=== PATIENT | female | born 1945 | race Caucasian/White ===

== ENCOUNTER → 2023-11-20 10:46 | Outpatient (REF) | payer MEDICARE, SELFPAY | LOC: WDC 10:46 | PROVIDERS: ATTENDING PHYSICIAN Obstetrics & Gynecology Gynecology; FAMILY PHYSICIAN Family Medicine | DX: Z12.31 Encounter for screening mammogram for malignant neoplasm of breast (principal) | CPT/HCPCS: 77063; 77067 ==

== ENCOUNTER → 2023-12-18 08:34 | Outpatient (REF) | payer MEDICARE, SELFPAY ==
[2023-12-18 09:00] LABS: Urine Albumin Negative (Neg - Trace); Urine Bilirubin Negative (Negative); Urine Character Clear (Clear); Urine Color Yellow; Urine Glucose Negative (Negative); Urine Ketone Negative (Negative); Urine Leukocyte Trace (Negative); Urine Nitrite Negative (Negative); Urine Occult Blood Negative (Negative); Urine Specific Gravity 1.025 (<1.030); Urine Urobilinogen Negative (Neg - 1+)
[2023-12-18 09:03] LABS: % Basophils 1.1 % (0-2); % Eosinophils 2.4 % (0-6); % Immature Granulocytes 0.2 % (0-0.5); % Monocytes 9.6 % (1.7-9.3); % Neutrophils 49.7 % (42.2-75.2); Absolute Basophils 0.1 10^3/uL (0-0.2); Absolute Eosinophils 0.1 10^3/uL (0-0.7); Absolute Lymphocytes 1.7 10^3/uL (1.2-3.4); Absolute Monocytes 0.4 10^3/uL (0.1-0.6); Absolute Neutrophils 2.3 10^3/uL (1.4-6.5); Hematocrit 46.7 % (37.0-47.0); Hemoglobin 15.5 g/dL (12.0-16.0); Mean Corp Hgb Conc. 33.2 g/dL (33.0-37.0); Mean Corpuscular Hgb 31.6 pg (27.0-31.0); Mean Corpuscular Volume 95.3 fL (81.0-99.0); Mean Platelet Volume 9.9 fL (7.4-10.4); Nucleated Red Blood Cells % 0 %; Platelet Count 227 10^3/uL (130-400); Red Cell Dist. Width 13.4 % (11.5-14.5); White Blood Cell Count 4.6 10^3/uL (4.8-10.8)
[2023-12-18 09:20] LABS: Urine Red Blood Cell 0-2 /HPF (0-2)
[2023-12-18 09:46] LABS: ALT (SGPT) 29 U/L (0-35); AST (SGOT) 32 U/L (14-36); Albumin 4.6 g/dl (3.5-5.0); Alkaline Phosphatase 69 U/L (38-126); Blood Urea Nitrogen 16 mg/dl (7-17); Calcium 9.6 mg/dl (8.4-10.2); Carbon Dioxide 26 mmol/L (22-30); Chloride 105 mmol/L (98-107); Glucose 115 mg/dl (70-99); HDL Cholesterol 76 mg/dl; LDL Cholesterol, Calculated 99 mg/dl; Potassium 4.2 mmol/L (3.5-5.1); Sodium 142 mmol/L (135-145); Total Bilirubin 1.3 mg/dl (0.2-1.3); Total Cholesterol 199 mg/dl (50-199); Total Protein 7.6 g/dl (6.3-8.2); Triglyceride 124 mg/dl (10-149); Very Low Density Lipoprotein 24 mg/dl (0-30); eGFR > 60.00
[2023-12-19 09:24] LABS: Glycohemoglobin (HgbA1c) 6.1 % (4.0-5.6)
== END ==
LOC: REG 08:34
PROVIDERS: ATTENDING PHYSICIAN Family Medicine
DX: E78.5 Hyperlipidemia, unspecified (principal); R73.03 Prediabetes; Z85.3 Personal history of malignant neoplasm of breast; Z00.00 Encounter for general adult medical examination without abnormal findings
CPT/HCPCS: 36415; 80053; 80061; 81003; 81015; 83036; 85025

== ENCOUNTER → 2024-02-18 14:50 | Outpatient (REF) | payer MEDICARE, SELFPAY | LOC: WDC 14:50 | PROVIDERS: ATTENDING PHYSICIAN Obstetrics & Gynecology Gynecology; FAMILY PHYSICIAN Family Medicine | DX: Z85.3 Personal history of malignant neoplasm of breast (principal) | CPT/HCPCS: 76641 ==

== ENCOUNTER 2024-10-27 15:18 | Emergency (ER) | payer OTHER, SELFPAY ==
[2024-10-27] VITALS (12 sets, daily range): BP systolic 140–179; BP diastolic 76–98
--- NOTE | 2024-10-27 15:25 | ED.MUSCINJ ---
HPI-Injury
<Dale Queen PA-C - Last Filed: 10/27/24 20:06>
General
Chief Complaint: Musculo-Skeletal Complaint
Source: patient
Exam Limitations: none
Time Seen by Provider: 10/27/24 15:23
History of Present Illness-Injury
Initial Injury comments:
79-year-old qsciy-gbyu-bzfsjldc female presents complaining of left arm pain after a fall. She was cleaning her blinds and fell onto her left arm. No headache no neck pain no loss of consciousness. EMS noted deformity splinted her. She received
100 mcg of fentanyl en route.
Past History
<RAQUEL Xiong Last Filed: 10/27/24 20:06>
Past History
ED Past Medical History: GERD and Other (breast CA, glaucoma, diverticulitis, intractable hiccups); Negative HTN or Hypercholesterolemia
ED Past Surgical History: Gynecological (D and C, left breast lumpectomy), Orthopedic and Other (Bilateral cataract removal)
Social History
Tobacco: Non-smoker
Alcohol: None
Drug: None
Personal:
Living: with family
Employment: Retired
Family History
Family History: Other (Noncontributory)
Phy Exam
<RAQUEL Xiong Last Filed: 10/27/24 20:06>
Physical Exam
Physical Exam:
General: Well appearing uncomfortable female no acute respiratory distress
HEENT: Normocephalic atraumatic
Musculoskeletal exam: Deformity noted to the left upper arm. The spine is nontender. She is able to move the fingers on her left hand
Heart: Regular rate and rhythm
Lungs: Clear no wheeze
Neurologic exam: Alert and oriented good sensation left hand
Injury Course
<RAQUEL Xiong Last Filed: 10/27/24 20:06>
Orders/Labs/Results
Orders:
Orders
10/27/24 15:24
HYDROmorphone [Dilaudid] 1 mg IV NOW STA
CR Humerus - Left Min 2 Views* Urgent
Comment:
Reason For Exam: fall/pain
10/27/24 16:57
CR Wrist - Left Min 2 Views Urgent
Comment:
Reason For Exam: pain
10/27/24 17:55
Propofol [Diprivan] 20 ml .ROUTE .STK-MED
10/27/24 18:14
CR Wrist - Left Min 2 Views Stat
Comment:
Reason For Exam: post reduction
Humerus, Left 2 Views [CR Humerus - Left Min 2 Views*] Stat
Comment:
Reason For Exam: post reduction portable
10/27/24 19:59
Oxycodone/Acetaminophen [Percocet 5/325] 1 tablet PO NOW STA
<Heather Hooks MD - Last Filed: 10/27/24 18:22>
Orders/Labs/Results
Orders:
Orders
10/27/24 15:24
HYDROmorphone [Dilaudid] 1 mg IV NOW STA
CR Humerus - Left Min 2 Views* Urgent
Comment:
Reason For Exam: fall/pain
10/27/24 16:57
CR Wrist - Left Min 2 Views Urgent
Comment:
Reason For Exam: pain
10/27/24 17:55
Propofol [Diprivan] 20 ml .ROUTE .STK-MED
10/27/24 18:14
CR Wrist - Left Min 2 Views Stat
Comment:
Reason For Exam: post reduction
Humerus, Left 2 Views [CR Humerus - Left Min 2 Views*] Stat
Comment:
Reason For Exam: post reduction portable
10/27/24 19:59
Oxycodone/Acetaminophen [Percocet 5/325] 1 tablet PO NOW STA
Procedures
<Dale Queen PA-C - Last Filed: 10/27/24 20:06>
Moderate Sedation
ASA Risk Score: Class II
Chart and allergies reviewed: Yes
Consent for anesthesia obtained: Yes
Time out completed (validating right patient & procedure): Yes
Moderate Sedation Start Time(when first medication is given): 18:04
History of difficult intubation: No
Airway free of obstruction: Yes
Patient has a gag reflex: Yes
Patient is able to open mouth: Yes
Patient has no dentures: Yes
Patient has no loose teeth: Yes
Medication administered by Provider during Moderate Sedation: IV Propofol (mg)
Total dose administered: 170
Time drug administered: 18:04
Moderate Sedation Procedure End Time: 18:20
<Dale Queen PA-C - Last Filed: 10/27/24 20:06>
MDM/Problems Addressed
Differential Diagnosis Includes:
Left arm pain after a fall with deformity. Consider fracture versus dislocation
IV access was obtained by EMS staff. Will give Dilaudid for pain x-rays ordered.
<Dale Queen PA-C - Last Filed: 10/27/24 20:06>
*Critical Care Note
Total Time (30-74mins, 75-104mins- exclusive of procedures): Not Applicable
<Dale Queen PA-C - Last Filed: 10/27/24 20:06>
Update Note
Update Note:
X-rays of the humerus demonstrate an angulated midshaft transverse humeral fracture. Upon reassessment she was complaining of left wrist pain. X-rays of the left wrist also demonstrate dorsally angulated distal radius fracture. Written consent
obtained for moderate sedation with reduction of the humeral shaft and the distal radius. Sedation performed by emergency room attending. Total of 170 mg of propofol were used. The left wrist was reduced using longitudinal traction hyperextension
and dorsal pressure. This was then immobilized with a dorsal splint. The humerus was attempted to be reduced with longitudinal traction and pressure circumferentially around the fracture site. This was placed in a coapt splint and postreduction
films demonstrated a persistent angulation but slightly improved alignment. Showed pre and postreduction x-rays orthopedics who recommended keeping the splint in place and following up for next available appoint with a hand specialist a
prescription for pain medicine was provided. She is now accompanied by her will be taking her home discharge
ED Attending Note
<Dale Queen PA-C - Last Filed: 10/27/24 20:06>
-
Portions of this chart may have been created with voice recognition software.� Occasional wrong word or��sound alike� substitutions may have occurred due to the inherent limitations of voice recognition software.
<Heather Hooks MD - Last Filed: 10/27/24 18:22>
ED Attending Note
Patient seen and examined by attending physician: Yes
I performed the substantive portion of visit, reviewed & personally made and approve the management plan that is documented in note by myself or SHAY.: Yes
ED Attending Note:
Patient is awake and alert. There is no sign of head or neck trauma. Patient's left upper arm is shortened and appears swollen and deformed. Patient has strong pulses in left hand.
I personally participated in conscious sedation and reduction of left wrist and left humerus
Discharge Plan
Departure
Patient Disposition: Home (Routine Discharge)
Date of Disposition: 10/27/24
Time of Disposition: 20:02
Patient with high blood pressure during this ER visit?: No
Discharge Problem:
Fracture, humerus, Distal radius fracture, left
Instructions: MODERATE SEDATION ADULT
Prescriptions:
New
oxycodone-acetaminophen [Percocet] 5-325 mg tablet
1 tab PO Q6HPRN PRN (Reason: pain) Qty: 10 0RF
No Action
pantoprazole 40 MG tablet,delayed release (DR/EC)
40 mg PO DAILY
atorvastatin 10 MG tablet
10 mg PO DAILY
calcium carbonate [Calcium 600] 600 MG tablet
600 mg PO DAILY
jeiptvge-zmk-LW-lycopen-lutein [Centrum Silver] 1 EACH tablet
1 ea PO DAILY
fish oil-dha-epa 1 EACH capsule
1 ea PO DAILY
zolpidem 10 MG tablet
10 mg PO HSPRN PRN (Reason: insomnia)
cyclobenzaprine 10 MG tablet
10 mg PO TIDPRN PRN (Reason: muscle spasm) Qty: 20 0RF
diclofenac sodium 75 MG tablet,delayed release (DR/EC)
75 mg PO BID PRN (Reason: pain, take with food) Qty: 24 0RF
nystatin 5 ML suspension
5 ml PO QID Qty: 140 0RF
Rx Instructions:
one teaspoon four times a day....swish and swallow
prochlorperazine maleate [Compazine] 10 mg tablet
10 mg PO TID Qty: 21 0RF
Rx Instructions:
one table three times a day
Referrals:
Shiva Davis MD [Family Provider] -
Demetri Clayton MD [Active] -
Activity Restrictions/Additional Instructions:
Keep splint on and dry. Use pain medicine as needed for severe pain. Return if needed otherwise follow-up with orthopedics for next available appointment
Interventions
Interventions:
*Risk Screen - Suicide Last Done: 10/27/24 15:21
*General Assessment Last Done: 10/27/24 15:21
*Neglect/Abuse Screening Last Done: 10/27/24 15:21
*ED- Fall Risk Assessment Last Done: 10/27/24 15:21
*ED COVID-19 Vaccine History Last Done: 10/27/24 15:21
Discharge Date and Time
Print Language: SYRIAC
[2024-10-27] MEDS: DILAUDID 1 MG IV (15:35)
[2024-10-27] MEDS: PERCOCET 5/325 1 TABLET PO (20:12)
== END 2024-10-27 20:15 | disposition home or self-care (01) ==
LOC: EMR 15:18
PROVIDERS: EMERGENCY PHYSICIAN Emergency Medicine; FAMILY PHYSICIAN Internal Medicine
DX: S52.592A Other fractures of lower end of left radius, initial encounter for closed fracture (principal); S52.572A Other intraarticular fracture of lower end of left radius, initial encounter for closed fracture; W19.XXXA Unspecified fall, initial encounter; K21.9 Gastro-esophageal reflux disease without esophagitis; H40.9 Unspecified glaucoma; R06.6 Hiccough; Z85.3 Personal history of malignant neoplasm of breast
CPT/HCPCS: 99283; 24505; 25605; 99152; 96374; 73060; 73100

== ENCOUNTER 2024-10-29 04:42 | Emergency (ER) | payer OTHER, SELFPAY ==
[2024-10-29 04:42] VITALS: BMI 29.2
[2024-10-29 04:53] VITALS: BP 148/87
--- NOTE | 2024-10-29 07:16 | ED.GENMED ---
History of Present Illness
General
Chief Complaint: Cast Check
Source: patient
Exam Limitations: none
Time Seen by Provider: 10/29/24 07:12
History of Present Illness
History of Present Illness:
See MDM
Past History
Past History
ED Past Medical History: GERD and Other (breast CA, glaucoma, diverticulitis, intractable hiccups); Negative HTN or Hypercholesterolemia
ED Past Surgical History: Gynecological (D and C, left breast lumpectomy), Orthopedic and Other (Bilateral cataract removal)
Social History
Tobacco: Non-smoker
Alcohol: None
Drug: None
Personal:
Living: with family
Employment: Retired
Family History
Family History: Other (Noncontributory)
Phy Exam
Physical Exam
Physical Exam:
See MDM
Course
Orders/Labs/Results
Orders:
Orders
10/29/24 07:16
HYDROmorphone [Dilaudid] 1 mg IM NOW STA
Vital Signs
Initial and Last Documented VS:
Initial Vital Signs
Temp Pulse Resp BP Pulse Ox
98.6 F 78 16 148/87 96
10/29/24 04:53 10/29/24 04:53 10/29/24 04:53 10/29/24 04:53 10/29/24 04:53
Last Documented Vital Signs
Temp Pulse Resp BP Pulse Ox
98.6 F 78 16 148/87 96
10/29/24 04:53 10/29/24 04:53 10/29/24 04:53 10/29/24 04:53 10/29/24 04:53
MDM/Problems Addressed
Differential Diagnosis Includes:
HPI and MDM Narrative:
79-year-old female presenting with significant left wrist and finger pain. Patient states her fingers are turning purple. Patient was recently diagnosed with a wrist and humerus fracture of her left arm. She was splinted in the emergency
department. Since then, she followed orthopedics and does have surgery scheduled for her humerus and her wrist on Thursday. Nursing staff came to me to describe the symptoms. Per my request, the splint was loosened. On my evaluation, patient
states she is feeling much better. She states her fingers were purple but now the coloration has returned. On my exam, she is uncomfortable dealing with the fracture as well. Sensation grossly intact to the distal left extremity and distal pulses
intact. Cap refill less than 2 seconds. Patient understands the expected pain. She feels better once the splint was loosened. Will rewrap the splint loosely and discussed pain control and follow-up. Patient states she has enough pain medicine
at home. Will give one-time dose of Dilaudid in the emergency department
Physical exam
General: Well appearing and non-toxic
HEENT: protecting airway
Neck: appears supple
CV: No evidence of cyanosis
Resp: No accessory muscle use
Abd: Non-distended
Extremities: Mild edema to left hand but cap refill less than 2 seconds. Coloration appropriate. Distal pulses +2. Decreased range of motion secondary to pain
Neuro: alert
Psych: Normal affect
Skin: Intact
Problems Addressed including Acute and Chronic Conditions affecting care:
1. Left arm paresthesias
Acuity: acute
Prognosis: stable
Details: Appears to be related to the tight splint. It was loosened and she is feeling better. Will rewrap lightly
Differential Diagnosis (but not limited to): Fracture pain, tight splint, paresthesia
Testing considered: Repeat x-ray
Drug therapy (if applicable): OTC meds, please see d/c instruction regarding Rx drugs
Amount and/or Complexity of Data Reviewed
Clinical info obtained from: Patient
External data reviewed: Recent x-ray shows wrist fracture and humerus fracture
Labs I independently reviewed (but not limited to): N/A
Radiology: N/A
Pulse Ox: not hypoxic
EKG independently reviewed: N/A
Communications Project Manager: N/A
Critical Care: N/A
Risk of Complication:
Social Determinants of health: Good social support
Discussed with other providers: N/A
Escalation of Care includes Admit/Obs: After being observed in the Emergency Department, pt stable for discharge.
Occasional wrong word or 'sound a like' substitutions may have occurred due to the inherent limitations of voice recognition software. Read the chart carefully and recognize, using context, where substitutions have occurred.
*Critical Care Note
Total Time (30-74mins, 75-104mins- exclusive of procedures): Not Applicable
ED Attending Note
-
Portions of this chart may have been created with voice recognition software.� Occasional wrong word or��sound alike� substitutions may have occurred due to the inherent limitations of voice recognition software.
Discharge Plan
Departure
Patient Disposition: Home (Routine Discharge)
Date of Disposition: 10/29/24
Time of Disposition: 07:22
Patient with high blood pressure during this ER visit?: Yes
Discharge Problem:
Paresthesia
Prescriptions:
No Action
pantoprazole 40 MG tablet,delayed release (DR/EC)
40 mg PO DAILY
atorvastatin 10 MG tablet
10 mg PO DAILY
Centrum Silver 1 EACH tablet
1 ea PO DAILY
fish oil-dha-epa 1 EACH capsule
1 ea PO DAILY
oxycodone-acetaminophen [Percocet] 5-325 mg tablet
1 tab PO Q6HPRN PRN (Reason: pain) Qty: 10 0RF
alprazolam 0.25 mg Tablet
0.25 mg PO DAILY
metoprolol succinate 25 mg Capsule,Sprinkle,Er 24hr
25 mg PO HS
calcium carbonate-vitamin D3 [Calcium + D] 600 mg-5 mcg (200 unit) Tablet
1 tab PO DAILY
Referrals:
Shiva Davis MD [Family Provider] -
Activity Restrictions/Additional Instructions:
The symptoms appear to be related to a tight splint. We rewrapped the splint loosely. Please return for worsening symptoms.
Interventions
Interventions:
*Risk Screen - Suicide Last Done: 10/29/24 04:53
*General Assessment Last Done: 10/29/24 04:53
*Neglect/Abuse Screening Last Done: 10/29/24 04:53
*ED- Fall Risk Assessment Last Done: 10/29/24 04:53
*ED COVID-19 Vaccine History Last Done: 10/29/24 04:53
ED-Peripheral Vascular Assessment Last Done: 10/29/24 05:30
ED-Skin Assessment Last Done: 10/29/24 05:30
Discharge Date and Time
Print Language: MOHAWK
[2024-10-29] MEDS: DILAUDID 1 MG IM (07:36)
[2024-10-29 07:45] VITALS: BP 141/62
== END 2024-10-29 07:45 | disposition home or self-care (01) ==
LOC: EMR 04:42
PROVIDERS: EMERGENCY PHYSICIAN Student in an Organized Health Care Education/Training Program; FAMILY PHYSICIAN Internal Medicine
DX: R20.2 Paresthesia of skin (principal); S42.302A Unspecified fracture of shaft of humerus, left arm, initial encounter for closed fracture; M25.532 Pain in left wrist; M25.542 Pain in joints of left hand; R60.0 Localized edema; X58.XXXA Exposure to other specified factors, initial encounter; R03.0 Elevated blood-pressure reading, without diagnosis of hypertension; K21.9 Gastro-esophageal reflux disease without esophagitis; H40.9 Unspecified glaucoma; K57.92 Diverticulitis of intestine, part unspecified, without perforation or abscess without bleeding; Z85.3 Personal history of malignant neoplasm of breast; Z88.8 Allergy status to other drugs, medicaments and biological substances
CPT/HCPCS: 99284; 96372

== ENCOUNTER 2024-11-02 06:20 | Day surgery (SDC) | payer OTHER, SELFPAY ==
[2024-11-02] VITALS (8 sets, daily range): BP systolic 158–183; BP diastolic 84–100; BMI 28.3
[2024-11-02] MEDS: CELEBREX 200 MG PO (12:58)
[2024-11-02] MEDS: TYLENOL 1000 MG PO (12:58)
[2024-11-02] MEDS: NORMOSOL-R/PLASMALYTE-A 1000 IV (13:13)
[2024-11-02] MEDS: ZOFRAN 4 MG IV (17:28)
== END 2024-11-02 19:20 | disposition home or self-care (01) ==
LOC: SDS 06:20
PROVIDERS: ATTENDING PHYSICIAN Orthopaedic Surgery Hand Surgery
DX: S42.302A Unspecified fracture of shaft of humerus, left arm, initial encounter for closed fracture (principal); S52.502K Unspecified fracture of the lower end of left radius, subsequent encounter for closed fracture with nonunion; X58.XXXA Exposure to other specified factors, initial encounter
CPT/HCPCS: 25607; C1713; 73060; 76000

== ENCOUNTER → 2025-02-07 12:27 | Outpatient (REF) | payer OTHER, SELFPAY | LOC: WDC 12:27 | PROVIDERS: ATTENDING PHYSICIAN Obstetrics & Gynecology Gynecology; FAMILY PHYSICIAN Internal Medicine | DX: Z12.31 Encounter for screening mammogram for malignant neoplasm of breast (principal) | CPT/HCPCS: 77063; 77067 ==

== ENCOUNTER 2025-04-23 09:20 | Emergency (ER) | payer OTHER, SELFPAY ==
[2025-04-23 09:22] VITALS: BP 171/98
--- NOTE | 2025-04-23 10:01 | ED.GENMED ---
History of Present Illness
General
Chief Complaint: Dizziness
Source: patient and spouse
Exam Limitations: none
Time Seen by Provider: 04/23/25 09:46
History of Present Illness
History of Present Illness:
Patient with sudden onset dizziness/room spinning sensation upon turning her head upon wakening this morning. She has had previous episodes although the last one was about 10 years ago. Some nausea and diaphoresis. No headache, visual issues
double vision speech issues or other neurologic. No chest pain or shortness of breath. Feels moderately improved now. Able to ambulate but just feels slightly weak.
Past History
Past History
ED Past Medical History: GERD, HTN, Hypercholesterolemia and Other (breast CA, glaucoma, diverticulitis, intractable hiccups)
ED Past Surgical History: Gynecological (D and C, left breast lumpectomy), Orthopedic and Other (Bilateral cataract removal)
Social History
Tobacco: Non-smoker
Alcohol: None
Drug: None
Personal:
Living: with family
Employment: Retired
Family History
Family History: Other (Noncontributory)
Review of Systems
Review of Systems
All Other Systems: Not applicable
Respiratory: Reports no symptoms
Cardiac: Reports no symptoms
Phy Exam
Physical Exam
Physical Exam:
GENERAL: Alert and oriented in no apparent distress
EYE: Orbits normal. Extraocular muscles intact. No unusual nystagmus
NECK: Supple, no carotid bruit
ENT: Pharynx without erythema
CARDIAC: Regular rate and rhythm without any obvious murmurs.
LUNGS: Clear breath sounds,normal
ABDOMEN: Soft, without focal tenderness or distention
NEUROLOGICAL: Alert and oriented , cranial nerves II through XII intact. Speech normal. Kgxelc-[id number] normal. No drift.
SKIN: Warm and dry, no rash or lesion, no discoloration, skin intact.
MUSCULOSKELETAL: No edema,no deformity.Good color
PSYCH: Normal and appropriate interaction.
Course
Orders/Labs/Results
Orders:
Orders
04/23/25 10:00
Electrocardiogram (*1) Stat
Reason for Study: Other
Other Reason for Exam: neuro symptoms
CT Head W/o Iv Contrast Urgent
Comment:
Reason For Exam: Dizziness
Cardiac Monitoring- Treatment ONCE
EKG- Treatment ONCE
IV Insert/Care/Rem.- Treatment PRN
0.9% Sodium Chloride 500 ml [Nss] 500 ml IV BOLUS
04/23/25 10:02
Basic Metabolic Panel Urgent
Complete Blood Count/With Diff Urgent
04/23/25 12:02
Diazepam [Valium] 2 mg PO NOW STA
Meclizine [Antivert] 25 mg PO NOW STA
Abnormal Lab Results
04/23/25
10:02
MCH 32.1 H pg
(27.0-31.0)
Absolute Lymphs (auto) 0.9 L 10^3/uL
(1.2-3.4)
Neutrophils % 79.4 H %
(42.2-75.2)
Lymphocytes % 13.2 L %
(20.5-51.1)
BUN 19 H mg/dl
(7-17)
Glucose 127 H mg/dl
(70-99)
04/23/25 10:02
04/23/25 10:02
Vital Signs
Initial and Last Documented VS:
Initial Vital Signs
Temp Pulse Resp BP Pulse Ox
98 F 75 16 171/98 99
04/23/25 09:22 04/23/25 09:22 04/23/25 09:22 04/23/25 09:22 04/23/25 09:22
Last Documented Vital Signs
Temp Pulse Resp BP Pulse Ox
98 F 75 16 152/82 96
04/23/25 09:22 04/23/25 09:22 04/23/25 09:22 04/23/25 13:00 04/23/25 13:45
MDM/Problems Addressed
Differential Diagnosis Includes:
Symptoms are most consistent with a inner ear issue. Clearly stated this is a room spinning sensation with head turning. No other neurologic symptoms. Medically stable. Neurologic exam normal. Workup in progress.
*Radiology
Radiology exam reviewed: radiology read reviewed (Negative)
*Pulse Oximetry
SaO2: 99
Oxygen Mode of Delivery: Room air
Patient hypoxic: no
*Critical Care Note
Total Time (30-74mins, 75-104mins- exclusive of procedures): Not Applicable
Data Reviewed
Review of Other/Old Records Reveals: Labs, Records and Testing
Update Note
Update Note:
Patient doing much better after meclizine and Valium. Ambulated fine. Neurologic exam normal. No ataxia or disequilibrium. Stable for discharge to follow-up
ED Attending Note
-
Portions of this chart may have been created with voice recognition software.� Occasional wrong word or��sound alike� substitutions may have occurred due to the inherent limitations of voice recognition software.
Discharge Plan
Departure
Patient Disposition: Home (Routine Discharge)
Date of Disposition: 04/23/25
Time of Disposition: 13:53
Patient with high blood pressure during this ER visit?: Yes
Discharge Problem:
Vertigo
Instructions: Vertigo (a Type of Dizziness) (DC), BLOOD PRESSURE
Prescriptions:
New
diazepam [Valium] 2 mg tablet
2 mg PO TID PRN (Reason: vertigo) Qty: 14 0RF
meclizine 25 mg tablet
25 mg PO TID PRN (Reason: dizziness) Qty: 14 0RF
No Action
pantoprazole 40 MG tablet,delayed release (DR/EC)
40 mg PO DAILY
atorvastatin 10 MG tablet
10 mg PO DAILY
Centrum Silver 1 EACH tablet
1 ea PO DAILY
fish oil-dha-epa 1 EACH capsule
1 ea PO DAILY
oxycodone-acetaminophen [Percocet] 5-325 mg tablet
1 tab PO Q6HPRN PRN (Reason: pain) Qty: 10 0RF
alprazolam 0.25 mg Tablet
0.25 mg PO DAILY
metoprolol succinate 25 mg Capsule,Sprinkle,Er 24hr
25 mg PO HS
calcium carbonate-vitamin D3 [Calcium + D] 600 mg-5 mcg (200 unit) Tablet
1 tab PO DAILY
Referrals:
Shiva Davis MD [Family Provider, Internal Medicine] - Follow up in 2-3 days
Margaret Sharma MD [Active, Otology] - Next open appointment
Activity Restrictions/Additional Instructions:
The prescriptions were sent to your pharmacy
You can try meclizine and/or the Valium
I gave you the name of a good ENT physician to follow-up
Return immediately with worsening symptoms difficulty ambulating or any acute neurologic symptoms
Interventions
Interventions:
*Risk Screen - Suicide Last Done: 04/23/25 09:22
*General Assessment Last Done: 04/23/25 14:00
*Neglect/Abuse Screening Last Done: 04/23/25 09:22
*ED- Fall Risk Assessment Last Done: 04/23/25 14:00
*ED COVID-19 Vaccine History Last Done: 04/23/25 14:00
*ED Influenza Vaccine History Last Done: 04/23/25 14:00
*Nursing Disposition Last Done: 04/23/25 14:00
ED- Neurological Assessment Last Done: 04/23/25 14:00
ED- Cardiac Assessment Last Done: 04/23/25 14:00
Discharge Date and Time
Discharge Date/Time: 04/23/25 14:02
Print Language: [id number]
[2025-04-23] MEDS: NSS 500 IV (10:09)
[2025-04-23 10:17] LABS: Hematocrit 42.3 % (37.0-47.0); Hemoglobin 15.1 g/dL (12.0-16.0); Mean Corp Hgb Conc. 35.7 g/dL (33.0-37.0); Mean Corpuscular Volume 90.0 fL (81.0-99.0); Nucleated Red Blood Cells % 0 %; Platelet Count 232 10^3/uL (130-400); Red Cell Dist. Width 12.8 % (11.5-14.5)
[2025-04-23 10:33] LABS: Blood Urea Nitrogen 19 mg/dl (7-17); Calcium 9.4 mg/dl (8.4-10.2); Carbon Dioxide 23 mmol/L (22-30); Chloride 107 mmol/L (98-107); Glucose 127 mg/dl (70-99); Potassium 3.7 mmol/L (3.5-5.1); Sodium 141 mmol/L (135-145); eGFR > 60.00
[2025-04-23 11:31] VITALS: BP 160/77
[2025-04-23 12:00] VITALS: BP 160/74
[2025-04-23] MEDS: VALIUM 2 MG PO (12:14)
[2025-04-23] MEDS: ANTIVERT 25 MG PO (12:14)
[2025-04-23 13:00] VITALS: BP 152/82
== END 2025-04-23 14:02 | disposition home or self-care (01) ==
LOC: EMR 09:20
PROVIDERS: EMERGENCY PHYSICIAN Emergency Medicine; FAMILY PHYSICIAN Internal Medicine
DX: R42 Dizziness and giddiness (principal); I10 Essential (primary) hypertension; E78.00 Pure hypercholesterolemia, unspecified; H40.9 Unspecified glaucoma; K21.9 Gastro-esophageal reflux disease without esophagitis; Z85.3 Personal history of malignant neoplasm of breast
CPT/HCPCS: 99284; 96360; 70450; 80048; 85025; 93005

== ENCOUNTER → 2025-04-26 09:44 | Outpatient (REF) | payer OTHER, SELFPAY | LOC: WDC 09:44 | PROVIDERS: ATTENDING PHYSICIAN Obstetrics & Gynecology Gynecology; FAMILY PHYSICIAN Internal Medicine | DX: R92.2 Inconclusive mammogram (principal); Z85.3 Personal history of malignant neoplasm of breast | CPT/HCPCS: 76641 ==